=== PATIENT | female | born 1985 | race African-American/Black ===

== ENCOUNTER 2019-05-26 06:44 | Emergency (ER) | payer OTHER ==
[2019-05-26 07:26] LABS: APPEARANCE,URINE SLIGHTLY-CLOUDY; BILIRUBIN,URINE NEGATIVE (NEGATIVE); COLOR,URINE YELLOW; GLUCOSE, URINE NEGATIVE (NEGATIVE); KETONES,URINE NEGATIVE (NEGATIVE); LEUKOCYTE ESTERASE,URINE NEGATIVE (NEGATIVE); NITRITE,URINE NEGATIVE (NEGATIVE); PROTEIN,URINE 30 mg/dL (NEGATIVE); URINE SPECIFIC GRAVITY 1.024
--- NOTE | 2019-05-26 09:26 | ER Document Report ---
ED General Pain - General Chief Complaint: Low Back Pain Stated Complaint: LOWER BACK PAIN Time Seen by Provider: 05/26/19 09:25 Notes: CHIEF COMPLAINT: Low back pain, cough HPI: 33-year-old female presenting to the emergency department complaining of 3 to 4 days of low back pain. Patient feels like the discomfort worsens with position and movement. Seems to radiate into the bilateral gluteal region. No incontinence of urine or bowel. Patient has had cough and cold symptoms over the last week. Patient went to a local [facility] because she felt like her urine was slightly dark and was diagnosed with a UTI. She was not able to fill the medication until yesterday and started Macrobid yesterday. Has not had fever. Denies abdominal pain nausea vomiting or dysuria ROS: See HPI - all other systems were reviewed and are otherwise negative Constitutional: no fever Eyes: no drainage, no blurred vision ENT: no runny nose, no sore throat Cardiovascular: no chest pain Resp: no SOB, + cough GI: no vomiting, no diarrhea, no abdominal pain : no dysuria Integumentary: no rash Allergy: no hives Musculoskeletal: no extremity pain or swelling, positive back pain Neurological: no numbness/tingling, no weakness MEDICATIONS: I agree with the patient medications as charted by the RN. ALLERGIES: I agree with the allergies as charted by the RN. PAST MEDICAL HISTORY/PAST SURGICAL HISTORY: Reviewed and agree as charted by RN. SOCIAL HISTORY: Reviewed and agree as charted by RN. FAMILY HISTORY: No significant familial comorbid conditions directly related to patient complaint EXAM: Reviewed vital signs as charted by RN. CONSTITUTIONAL: Alert and oriented and responds appropriately to questions. Well-appearing; well-nourished, mild distress secondary to discomfort HEAD: Normocephalic; atraumatic EYES: PERRL; Conjunctivae clear, sclerae non-icteric ENT: normal nose; no rhinorrhea; moist mucous membranes; pharynx without lesions noted, no uvula edema or deviation, no tonsillar hypertrophy, phonation normal NECK: Supple without meningismus; non-tender; no cervical lymphadenopathy, no masses CARD: RRR; no murmurs, no clicks, no rubs, no gallops; symmetric distal pulses RESP: Normal chest excursion without splinting or tachypnea; breath sounds clear and equal bilaterally; no wheezes, no rhonchi, no rales, pulse oximetry 98% on room air not hypoxic. Congested cough noted ABD/GI: Normal bowel sounds; non-distended; soft, non-tender, no rebound, no guarding; no palpable organomegaly or masses. BACK: The back appears normal and is mildly tender to palpation across the lower lumbar musculature bilaterally, there is no CVA tenderness EXT: Normal ROM in all joints; non-tender to palpation; no cyanosis, no effusions, no edema SKIN: Normal color for age and race; warm; dry; good turgor; no acute lesions noted NEURO: Moves all extremities equally; Motor and sensory function intact, strength equal 5/5 bilateral lower extremities. Sensation intact and equal bilateral lower extremities. Straight leg raise is negative. No saddle anesthesia on exam. DTRs 2+ intact and equal bilateral lower extremities. PSYCH: The patient's mood and manner are appropriate. Grooming and personal hygiene are appropriate. MDM: 33-year-old female presenting for low back pain over the last several days. She has had a congested cough over the last week. Suspect bronchitis with injury to the low back from coughing. Her urine does not show evidence of infection. She only took 1 dose of Macrobid. Unlikely that she has a UTI at this time. Will obtain chest x-ray to evaluate for infiltrate as patient will likely need a different antibiotic to cover respiratory pathology TRAVEL OUTSIDE OF THE [place] IN LAST 30 DAYS: No - Related Data Allergies/Adverse Reactions: No Known Allergies Allergy (Verified 05/26/19 06:57) Home Medications: Macrobid Past Medical History - Social History Smoking Status: Current Every Day Smoker Family History: Reviewed & Not Pertinent Patient has suicidal ideation: No Patient has homicidal ideation: No - Immunizations Hx Diphtheria, Pertussis, Tetanus Vaccination: Yes Physical Exam - Vital signs Vitals: Temp Pulse Resp BP Pulse Ox 98.7 F 78 16 139/88 H 100 05/26/19 06:57 05/26/19 06:57 05/26/19 06:57 05/26/19 06:57 05/26/19 06:57 Course - Re-evaluation Re-evalutation: 05/26/19 10:26 Chest x-ray does not show evidence of infiltrate will treat for bronchitis with Zithromax. Place patient on naproxen for low back pain likely from coughing. - Vital Signs Vital signs: Temp Pulse Resp BP Pulse Ox 98.7 F 78 16 139/88 H 100 05/26/19 06:57 05/26/19 06:57 05/26/19 06:57 05/26/19 06:57 05/26/19 06:57 - Laboratory Laboratory results interpreted by me: 05/26/19 07:02 Urine Protein 30 H Urine Urobilinogen 4.0 H Urine Ascorbic Acid 40 H Discharge - Discharge Clinical Impression: Acute bronchitis Qualifiers: Bronchitis organism: unspecified organism Qualified Code(s): J20.9 - Acute bronchitis, unspecified Low back pain Qualifiers: Chronicity: acute Back pain laterality: bilateral Sciatica presence: without sciatica Qualified Code(s): M54.5 - Low back pain Condition: Stable Disposition: HOME, SELF-CARE Additional Instructions: Take the medications as prescribed. Hold the Macrobid at this time. Follow-up with primary care provider for reevaluation Prescriptions: Naproxen 500 mg PO BID PRN #14 tablet PRN Reason: Azithromycin [Zithromax 250 mg Tablet] 250 mg PO ASDIR PRN #6 tablet PRN Reason: Referrals: TOMMY VEE MD [ACTIVE STAFF] - Follow up as needed
--- NOTE | 2019-05-26 10:19 | RADIOLOGY REPORT (SQ) ---
EXAM DESCRIPTION: CHEST 2 VIEWS COMPLETED DATE/TIME: 05/26/2019 10:07 am REASON FOR STUDY: cough COMPARISON: None. EXAM PARAMETERS: NUMBER OF VIEWS: two views TECHNIQUE: Digital Frontal and Lateral radiographic views of the chest acquired. RADIATION DOSE: NA LIMITATIONS: none FINDINGS: LUNGS AND PLEURA: No opacities, masses or pneumothorax. No pleural effusion. MEDIASTINUM AND HILAR STRUCTURES: No masses or contour abnormalities. HEART AND VASCULAR STRUCTURES: Heart normal size. No evidence for failure. BONES: No acute findings. HARDWARE: None in the chest. OTHER: No other significant finding. IMPRESSION: NO ACUTE RADIOGRAPHIC FINDING IN THE CHEST. TECHNICAL DOCUMENTATION: JOB ID: [id number] [employer]- All Rights Reserved Reading location - IP/workstation name: [email or web address]
[2019-05-26] MEDS ORDERED: KETOROLAC TROMETHAMINE 60 MG/2 ML SDV IM ONE (10:26)
[2019-05-26 10:53] VITALS: BP 132/85
== END 2019-05-26 10:53 | disposition home or self-care (01) ==
LOC: ER 06:44
DX: J20.9 Acute bronchitis, unspecified (principal); M54.5 Low back pain; F17.200 Nicotine dependence, unspecified, uncomplicated
CPT/HCPCS: 81001; 71046; J1885; 96372; 99283